=== PATIENT | female | born 1945 | race Caucasian/White ===

== ENCOUNTER → 2016-09-13 | Outpatient (CLI) | payer MEDICARE ==
[~2016-09-13] MED LIST: APIX5TAB PO; CARV6.252 PO; FLUT9.9S NS
== END | disposition home or self-care (01) ==
LOC: CFH 10:23
PROVIDERS: ATTEND Nurse Practitioner Family
DX: Z12.31 Encounter for screening mammogram for malignant neoplasm of breast (principal); Z13.820 Encounter for screening for osteoporosis; E04.2 Nontoxic multinodular goiter; M85.88 Other specified disorders of bone density and structure, other site; Z85.3 Personal history of malignant neoplasm of breast
CPT/HCPCS: 76536; 77063; 77080; G0202

== ENCOUNTER → 2016-12-20 | Outpatient (CLI) | payer MEDICARE ==
[~2016-12-20] MED LIST changes: +LIDOCAINE 1%, 20ML ONE
== END | disposition home or self-care (01) ==
LOC: RAD 09:33
PROVIDERS: ATTEND Surgery
DX: E04.2 Nontoxic multinodular goiter (principal); E07.9 Disorder of thyroid, unspecified
CPT/HCPCS: 76536; 76942; 88172; 88173; J3490

== ENCOUNTER → 2017-04-28 | Outpatient (CLI) | payer MEDICARE ==
[~2017-04-28] MED LIST changes: -LIDOCAINE 1%, 20ML ONE
== END | disposition home or self-care (01) ==
LOC: CFH 13:08
PROVIDERS: ATTEND Nurse Practitioner
DX: M89.8X8 Other specified disorders of bone, other site (principal); M51.87 Other intervertebral disc disorders, lumbosacral region; M25.78 Osteophyte, vertebrae; Z98.1 Arthrodesis status; Z85.3 Personal history of malignant neoplasm of breast
CPT/HCPCS: 72192

== ENCOUNTER → 2017-10-11 | Outpatient (CLI) | payer MEDICARE | END | disposition home or self-care (01) | LOC: CFH 12:08 | PROVIDERS: ATTEND Student in an Organized Health Care Education/Training Program | DX: E04.2 Nontoxic multinodular goiter (principal) | CPT/HCPCS: 76536 ==

== ENCOUNTER → 2017-12-28 | Outpatient (CLI) | payer MEDICARE ==
[~2017-12-28] MED LIST changes: +ALBU18HF PO; +CARV12.52 PO; +DIGO125T PO; +LACT1CAP37 PO; +RIVA20TA PO; +VIT1CAPS10 PO; +VIT1CAPS42 PO
== END | disposition home or self-care (01) ==
LOC: STAR 13:18
PROVIDERS: ATTEND Surgery
DX: Z01.818 Encounter for other preprocedural examination (principal); I48.91 Unspecified atrial fibrillation
CPT/HCPCS: 93005

== ENCOUNTER 2018-01-02 06:15 | Inpatient (IN) | payer MEDICARE ==
[~2018-01-02] VITALS: Ht 175.3 cm; Wt 117.8 kg
[2018-01-02] MEDS ORDERED: REMIFENTANIL 1 MG ONE (06:36)
[2018-01-02] MEDS ORDERED: LACTATED RINGERS 1,000 ML IV SCH (06:58)
[2018-01-02] MEDS ORDERED: APREPITANT 40 MG CAPSULE PO STA (06:58)
[2018-01-02] MEDS ORDERED: PROPOFOL 10 MG/ML, 20ML ONE ×2 (07:57→08:21)
[2018-01-02] MEDS ORDERED: BUPIVACAINE/PF 0.25% ONE (07:58)
[2018-01-02] MEDS ORDERED: FENTANYL PF 100 MCG/2ML ONE ×2 (08:01→09:26)
[2018-01-02] MEDS ORDERED: PROPOFOL 50 ML ONE (08:05)
[2018-01-02] MEDS ORDERED: CEFAZOLIN 1,000 MG ONE (08:07)
[2018-01-02] MEDS ORDERED: HYDROcodone/APAP 7.5-325MG/15ML UDC PO PRN (09:00)
[2018-01-02] MEDS ORDERED: OXYcodone 5 MG/5 ML ORAL.SOL UDC PO PRN (09:00)
[2018-01-02] MEDS ORDERED: HYDROmorphone 1 MG/ML, 1ML IV PRN (09:00)
[2018-01-02] MEDS ORDERED: MORPHINE SULFATE 4 MG/ML, 1ML IVPush PRN (09:00)
[2018-01-02] MEDS ORDERED: MEPERIDINE/PF 25MG/0.5ML IVPush PRN (09:00)
[2018-01-02] MEDS ORDERED: OXYcodone 5 MG/5 ML ORAL.SOL UDC ONE (09:26)
[2018-01-02] MEDS: FENTANYL PF 100 MCG/2ML IV PRN ×3 (09:32→10:04)
[2018-01-02] MEDS ORDERED: ALBUTEROL SULFATE 2.5 MG/3 ML HHN PRN (11:30)
[2018-01-02] MEDS ORDERED: morphine SULFATE 10 MG/ML, 1ML IV PRN (11:30)
[2018-01-02] MEDS ORDERED: ONDANSETRON 2MG/ML, 2ML IV PRN (11:30)
[2018-01-02 12:53] VITALS: BP 128/70
[2018-01-02] MEDS: HYDROcodone/APAP 5/325 TABLET PO PRN ×2 (15:27→21:59)
[2018-01-02] MEDS ORDERED: CARVEDILOL 6.25 MG TABLET ONE (17:29)
[2018-01-02] MEDS: CARVEDILOL 12.5 MG TABLET PO SCH (17:51)
[2018-01-02 18:34] LABS: ALBUMIN 3.1 g/dL (3.4-5.0)
[2018-01-02 20:08] VITALS: BP 98/64
[2018-01-02] MEDS: SODIUM CHLORIDE FLUSH 10ML SYR IVF SCH (20:28)
[2018-01-02 23:50] VITALS: BP 127/63
[2018-01-03 00:40] LABS: ALBUMIN 2.8 g/dL (3.4-5.0); CALCIUM 8.1 mg/dL (8.5-10.1)
[2018-01-03 04:11] VITALS: BP 110/61
[2018-01-03 06:18] LABS: ALBUMIN 2.9 g/dL (3.4-5.0); CALCIUM 8.3 mg/dL (8.5-10.1)
[2018-01-03] MEDS: CARVEDILOL 12.5 MG TABLET PO SCH (06:52)
[2018-01-03 07:40] VITALS: BP 137/72
[2018-01-03] MEDS: SODIUM CHLORIDE FLUSH 10ML SYR IVF SCH (08:03)
[2018-01-03] MEDS ORDERED: LEVO125T PO (08:48)
[2018-01-03] MEDS ORDERED: LACTOBACILLUS CHEW TABLET PO SCH (09:00)
[2018-01-03] MEDS ORDERED: DIGOXIN 0.125 MG TABLET PO SCH (09:00)
[2018-01-03] MEDS ORDERED: FLUTICASONE NASAL SPRAY 16GM NAS SCH (09:00)
[2018-01-03] MEDS ORDERED: MULTIVITAMINS/MINERALS TABLET PO SCH (09:00)
[2018-01-03 10:13] VITALS: BP 115/56
== END 2018-01-03 11:44 | disposition home or self-care (01) | DRG 626 ==
LOC: OUT 06:15 → 4NOR 10:25 → OUT 11:06 → DCLOUNGE 01-03 08:13
PROVIDERS: ADMIT Surgery; ATTEND Surgery
PROC: 4A11X4G Monitoring of Peripheral Nervous Electrical Activity, Intraoperative, External Approach (ICD-10-PCS; 2018-01-02)
PROC: 5A09357 Assistance with Respiratory Ventilation, Less than 24 Consecutive Hours, Continuous Positive Airway Pressure (ICD-10-PCS; 2018-01-02)
PROC: 0GTK0ZZ Resection of Thyroid Gland, Open Approach (ICD-10-PCS; principal; 2018-01-02 08:00)
DX: E04.2 Nontoxic multinodular goiter (principal); E44.1 Mild protein-calorie malnutrition; G47.30 Sleep apnea, unspecified; I10 Essential (primary) hypertension; I48.91 Unspecified atrial fibrillation; J45.909 Unspecified asthma, uncomplicated; Z80.8 Family history of malignant neoplasm of other organs or systems; Z82.49 Family history of ischemic heart disease and other diseases of the circulatory system; Z85.3 Personal history of malignant neoplasm of breast; Z85.828 Personal history of other malignant neoplasm of skin; Z92.3 Personal history of irradiation; Z88.0 Allergy status to penicillin; Z88.8 Allergy status to other drugs, medicaments and biological substances
CPT/HCPCS: 36415; 82040; 82310; 88307; 88331; J0690; J2704; J3010; J3490; J8501; C1760; J7120

== ENCOUNTER → 2018-09-05 | Outpatient (CLI) | payer MEDICARE ==
[~2018-09-05] MED LIST changes: +LEVO125T PO; +OCUVITE SOFTGE1 EACH PO; -VIT1CAPS10 PO
== END | disposition home or self-care (01) ==
LOC: CVU 14:21
PROVIDERS: ATTEND Nurse Practitioner
DX: I87.2 Venous insufficiency (chronic) (peripheral) (principal); I86.8 Varicose veins of other specified sites; Z88.0 Allergy status to penicillin; Z88.8 Allergy status to other drugs, medicaments and biological substances
CPT/HCPCS: 93970

== ENCOUNTER 2018-09-18 12:20 | Outpatient (CLI) | payer MEDICARE | END 2018-09-18 23:59 | disposition home or self-care (01) | LOC: CFH 12:20 | PROVIDERS: ATTEND Nurse Practitioner | DX: Z12.31 Encounter for screening mammogram for malignant neoplasm of breast (principal) | CPT/HCPCS: 77063; 77067 ==

== ENCOUNTER 2019-03-13 15:27 | Emergency (ER) | payer MEDICARE ==
[~2019-03-13] VITALS: Ht 177.8 cm; Wt 122.6 kg
[2019-03-13 15:29] VITALS: BP 141/99
--- NOTE | 2019-03-13 15:29 | NUR ---
CUSTOMER ACCOUNT COORDINATOR: L RING FINGER WITH SIGNIFICANT SWELLING/BRUISING. UNABLE TO MANUALLY REMOVE RING. RING CUT OFF IN TRIAGE W PT'S CONSENT.
[2019-03-13] MEDS ORDERED: DIPH,PERTUSS(ACELL),TET VAC/PF 0.5 ML IM-VACC ONE ×2 (16:00→16:01)
[2019-03-13] MEDS ORDERED: ACETAMINOPHEN 500 MG TABLET ONE (16:58)
[2019-03-13] MEDS ORDERED: ACETAMINOPHEN 500 MG TABLET PO ONE (17:00)
--- NOTE | 2019-03-13 17:39 | NUR ---
Patient/Caregiver given discharge instructions and they have confirmed that they understand the instructions. Patient ambulatory to wheelchair.
== END 2019-03-13 17:41 | disposition home or self-care (01) ==
LOC: ED 17:35
DX: S06.310A Contusion and laceration of right cerebrum without loss of consciousness, initial encounter (principal); S62.327A Displaced fracture of shaft of fifth metacarpal bone, left hand, initial encounter for closed fracture; S01.81XA Laceration without foreign body of other part of head, initial encounter; S01.511A Laceration without foreign body of lip, initial encounter; S05.11XA Contusion of eyeball and orbital tissues, right eye, initial encounter; S93.402A Sprain of unspecified ligament of left ankle, initial encounter; M19.031 Primary osteoarthritis, right wrist; M19.032 Primary osteoarthritis, left wrist; M19.072 Primary osteoarthritis, left ankle and foot; M19.041 Primary osteoarthritis, right hand; I48.91 Unspecified atrial fibrillation; W01.0XXA Fall on same level from slipping, tripping and stumbling without subsequent striking against object, initial encounter; Y93.89 Activity, other specified; Y92.009 Unspecified place in unspecified non-institutional (private) residence as the place of occurrence of the external cause; Y99.8 Other external cause status
CPT/HCPCS: 12051; 29125; 70450; 70486; 90471; 90715; 92950; 99284

== ENCOUNTER 2019-07-16 11:28 | Day surgery (SDC) | payer MEDICARE ==
[~2019-07-16] VITALS: Ht 177.8 cm; Wt 120.5 kg
[~2019-07-16 11:28] MED LIST changes: -DIGO125T PO; +DIGO125T85 PO
[2019-07-16] MEDS ORDERED: LIDOCAINE-MPF 1%, 5ML ONE (13:38)
== END 2019-07-16 15:15 | disposition home or self-care (01) ==
LOC: CACL 11:28
PROVIDERS: ATTEND Internal Medicine Cardiovascular Disease
DX: I83.018 Varicose veins of right lower extremity with ulcer other part of lower leg (principal); I83.813 Varicose veins of bilateral lower extremities with pain; I10 Essential (primary) hypertension; I48.91 Unspecified atrial fibrillation; K57.30 Diverticulosis of large intestine without perforation or abscess without bleeding; I48.20 Chronic atrial fibrillation, unspecified; G47.33 Obstructive sleep apnea (adult) (pediatric); E66.8 Other obesity; E03.9 Hypothyroidism, unspecified; Z79.899 Other long term (current) drug therapy; Z88.1 Allergy status to other antibiotic agents; Z88.8 Allergy status to other drugs, medicaments and biological substances; Z79.01 Long term (current) use of anticoagulants; Z68.37 Body mass index [BMI] 37.0-37.9, adult
CPT/HCPCS: 36482; 36483

== ENCOUNTER → 2019-07-19 | Outpatient (CLI) | payer MEDICARE | END | disposition home or self-care (01) | LOC: CVU 06:53 | PROVIDERS: ATTEND Internal Medicine Cardiovascular Disease | DX: I83.91 Asymptomatic varicose veins of right lower extremity (principal); I48.91 Unspecified atrial fibrillation | CPT/HCPCS: 93971 ==

== ENCOUNTER → 2019-10-19 | Outpatient (CLI) | payer MEDICARE | END | disposition home or self-care (01) | LOC: CFH 12:41 | PROVIDERS: ATTEND Nurse Practitioner | DX: Z12.31 Encounter for screening mammogram for malignant neoplasm of breast (principal) | CPT/HCPCS: 77063; 77067 ==

== ENCOUNTER → 2020-02-19 | Outpatient (CLI) | payer MEDICARE | END | disposition home or self-care (01) | LOC: CVU 10:04 | PROVIDERS: ATTEND Internal Medicine Cardiovascular Disease | DX: I35.8 Other nonrheumatic aortic valve disorders (principal); I10 Essential (primary) hypertension; R60.9 Edema, unspecified | CPT/HCPCS: 93306 ==

== ENCOUNTER 2020-10-23 10:10 | Outpatient (CLI) | payer MEDICARE ==
[~2020-10-23 10:10] MED LIST changes: -LACT1CAP37 PO; +LACT1CAP47 PO
== END 2020-10-23 23:59 | disposition home or self-care (01) ==
LOC: CFH 10:10
PROVIDERS: ATTEND Nurse Practitioner
DX: Z12.31 Encounter for screening mammogram for malignant neoplasm of breast (principal)
CPT/HCPCS: 77063; 77067